=== PATIENT | male | born 1965 | race Caucasian/White ===

== ENCOUNTER → 2018-02-14 07:46 | Outpatient (CLI) | payer OTHER, SELFPAY ==
--- NOTE | 2018-02-14 07:50 | US_ITS ---
STUDY: ABDOMINAL ULTRASOUND REASON FOR EXAM: Male, 52 years old. Left upper quadrant pain, epigastric pain TECHNIQUE: Transabdominal ultrasound was performed with real-time and static gomez scale imaging. TECHNICAL QUALITY: Limited. Examination limited by bowel gas. COMPARISON: None. FINDINGS: Liver: The liver measures 13.8 cm. There is increased echogenicity consistent with fatty infiltration. The bile ducts are within normal limits. There is hepatic color flow. The direction of portal flow is hepatopetal. There is no demonstrated mass lesion. There is a peripheral right liver lobe calcification measuring 1.6 cm. Portal vein measurement: Gallbladder: Normal distended gallbladder. The gallbladder wall measures 2 mm. There is a negative sonographic Altamirano's sign. There is no pericholecystic fluid. There is biliary sludge dependent within the gallbladder. Common Bile Duct (C.B.D.): The common bile duct measures 4 mm. Pancreas: There is nonvisualization of the pancreas. Spleen: Normal size of the spleen. The spleen measures 12 cm. Right Kidney: Normal size of the right kidney. The right kidney measures 10.7 cm. Normal renal cortex. The right cortex measures 1.8 cm. There is no demonstrated renal mass or cyst. There is no right hydronephrosis. Nonshadowing mid to lower pole renal stones measuring up to 9 mm. Left Kidney: Normal size of the left kidney. The left kidney measures 11.0 cm. Normal renal cortex. The left cortex measures 1.8 cm. There is no demonstrated renal mass or cyst. There is no left hydronephrosis. Aorta: No aneurysm. I.V.C.: The IVC is patent. There is no ascites. US/Abdomen Complete IMPRESSION: Gallbladder sludge. CBD normal. Fatty enlarged liver. Liver granuloma. Pancreas not visualized. Nonobstructing right renal stones. Electronically Signed: Jake Dempsey DO at 9:12 EDT , Service support ,
== END ==
PROVIDERS: Family Provider Family Medicine; PCP Family Medicine
DX: K76.0 Fatty (change of) liver, not elsewhere classified (principal); K75.3 Granulomatous hepatitis, not elsewhere classified; K83.9 Disease of biliary tract, unspecified; N20.0 Calculus of kidney
CPT/HCPCS: 76700